=== PATIENT | male | born 1980 | race Caucasian/White ===

== ENCOUNTER 2021-05-31 01:51 | Outpatient (CLI) | payer MEDICAID, SELFPAY ==
[2021-05-31 11:39] LABS: Hemoglobin A1C 5.4 % (<5.7)
[2021-05-31 12:50] LABS: Calculated LDL 108 mg/dL (<100); Cholesterol 181 mg/dL (<200); HDL Cholesterol 67 mg/dL (40-60); Triglyceride 31 mg/dL (<150)
== END 2021-05-31 01:52 | disposition home or self-care (01) ==
LOC: LBO 01:51
PROVIDERS: PCP Nurse Practitioner Family; Visit Provider Nurse Practitioner Family
DX: Z13.1 Encounter for screening for diabetes mellitus (principal); Z13.220 Encounter for screening for lipoid disorders
CPT/HCPCS: 36415; 80061; 83036

== ENCOUNTER 2021-06-28 10:50 | Emergency (ER) | payer MEDICAID, SELFPAY ==
--- NOTE | 2021-06-28 10:45 | RT.EKG_ITS ---
APPROVED REPORT Exam: Resting ECG Reason for Exam: Hiccups x 3 days Patient Location: E HR:84 bpm ECG Measurements Heart Rate 84 AXIS ID 136 P 85 QRSd 119 QRS 88 QT 361 T 68 QTc 428 Conclusion Sinus rhythm...normal P axis, V-rate 60- 99 Incomplete right bundle branch block...QRSd >112, terminal axis(90,270). Sinus. Incomplete RBBB. No STEMI. I have reviewed and interpreted ECG and agree with software generated interpretation.
[2021-06-28 10:56] VITALS: BP 114/64; PULSE 79; RESP 15; TEMP 36.5; O2SAT 100
--- NOTE | 2021-06-28 11:11 | W.ED.GENAD ---
Discharge Plan Disposition Patient Disposition: HOME Condition: Improving Discharge Details Clinical Impression: Intractable hiccups Primary Care Provider: Jarrod Palafox ED Provider: Ariana Carrasquillo Home Meds and New Rx's Prescriptions: New pantoprazole [Protonix] 40 mg tablet,delayed release (DR/EC) 40 mg PO DAILY Qty: 7 0RF gabapentin 100 mg capsule 100 mg PO TID PRN (Reason: hiccups) Qty: 10 0RF No Action Creon 12,000-38,000 -60,000 unit capsule,delayed release(DR/EC) 1 cap PO TID Qty: 270 3RF Rx Instructions: administer with meals Discharge Instructions Instructions: Hiccups (ED) Additional Instructions: Please take the Protonix daily and the gabapentin as needed up to 3 times a day for hiccups. Please return to the ER for any worsening symptoms, chest pain, abdominal pain, vomiting, headache or any concerns. Follow up with primary care provider in 3-5 days. Return to ED sooner if any worsening or concerns. Increase oral fluids. Referrals: Jarrod Palafox, [employer] [Primary Care Provider] - 3 days Discharge Data Discharge Date/Time-TO BE ENTERED AT DEPARTURE: 06/28/21 13:39 Medical Decision Making 40-year-old male presents to the ER with chief complaint of hiccups for the last 3 days. He reports they are intermittent however he was unable to sleep last night. He presented to the urgent care this morning and was instructed to present here for further evaluation. He denies any chest pain, abdominal pain, nausea vomiting or diarrhea. He denies any headache or neck pain. She does have a past medical history of pancreatic insufficiency which he takes Creon for. Reports trying to drink water, water upside down taking Tums and his roommate anxiety medication which she does not know the name of with little to no relief. Cardiac work-up including EKG ordered, including troponins and lipase, chest x-ray. Give patient a GI cocktail. Will consider Reglan and Thorazine. Patient denies any chest pain, abdominal pain or headache which excludes any more serious causes for hiccups. Differential diagnosis includes but not limited to GERD, gastric distention, diaphragmatic hernia, alcohol use, pancreatitis, anxiety. 1240: Patient reevaluation, appears to be drowsy in the room and awakens begin to kick up again. Patient has received a GI cocktail and Reglan little to no relief. Protonix and gabapentin 100 mg added onto medication regimen. Labs show no leukocytosis, CMP largely within normal limits, bilirubin is slightly elevated at 1.1, lipase within normal limits at 58. Initial troponin negative. EKG shows a right bundle branch block please see Dr. Malik initial report. EXAM:? XR CHEST 2V PA ? LATERAL CLINICAL HISTORY:? Hiccups x 3 days TECHNIQUE:? 2D digital imaging was performed. COMPARISON:? No exams were available for comparison FINDINGS: MEDIASTINUM: Normal.? HEART: Normal. PULMONARY VASCULATURE: Normal. LUNGS: Clear. ? PLEURAL SPACE: No pleural effusion or pneumothorax. BONE: Pectus excavatum deformity..? IMPRESSION: No acute abnormality.? 1242: Chest x-ray shows pectus excavated deformity and not sure if this has something to do with the hiccups or not. If additional Protonix and gabapentin do not relieve hiccups will consider a CT abdomen pelvis 1323: Improvement patient reports improvement in hiccups after the Protonix and gabapentin. I will send patient home with the Protonix and gabapentin I did encourage follow-up with PCP and discuss strict return instructions with patient. HPI General Mode of arrival: ambulatory. Date/Time Provider Initiated Documentation: 06/28/21 10:53. Limitations to Documentation: no limitations. Information obtained by: patient, RN notes reviewed and old records reviewed. HPI Narrative: 40-year-old male presents to the ER with chief complaint of hiccups for the last 3 days. He reports they are intermittent however he was unable to sleep last night. He presented to the urgent care this morning and was instructed to present here for further evaluation. He denies any chest pain, abdominal pain, nausea vomiting or diarrhea. He denies any headache or neck pain. She does have a past medical history of pancreatic insufficiency which he takes Creon for. Reports trying to drink water, water upside down taking Tums and his roommate anxiety medication which she does not know the name of with little to no relief. Related Data Home Medications Medication Instructions Recorded Confirmed zctovy-oskerxer-qeuofop 1 cap PO TID #270 cap 08/13/20 06/28/21 12,000-38,000-60,000 unit capsule,delayed rel (Creon) gabapentin 100 mg capsule 100 mg PO TID PRN #10 cap 06/28/21 06/28/21 pantoprazole 40 mg tablet,delayed 40 mg PO DAILY #7 tab 06/28/21 06/28/21 release (Protonix) Previous Rx's Medication Instructions Recorded ddfiul-kyctddpm-hkfztpt 1 cap PO TID #270 cap 08/13/20 12,000-38,000-60,000 unit capsule,delayed rel (Creon) gabapentin 100 mg capsule 100 mg PO TID PRN #10 cap 06/28/21 pantoprazole 40 mg tablet,delayed 40 mg PO DAILY #7 tab 06/28/21 release (Protonix) Allergies Allergy/AdvReac Type Severity Reaction Status Date / Time No Known Allergies Allergy Verified 06/28/21 11:02 General Stated Complaint: GenMedical LELAND: 3 Review of Systems All systems reviewed & are unremarkable except as noted in HPI and below Constitutional Constitutional: Reports as per HPI, Denies fever(s), Denies headache(s) and Reports poor appetite ENT Ears, Nose, Mouth, and Throat: Denies headache(s) Cardiovascular Cardiovascular: Denies chest pain, Denies dyspnea and Reports other (hiccups) Respiratory Respiratory: Denies cough and Denies dyspnea Gastrointestinal Gastrointestinal: Denies abdominal pain, Denies diarrhea, Denies nausea, Denies vomiting and Reports other (Hiccups, Poor appetitie) Neurologic Neurologic: Denies headache(s) PFSH All Active Problems Intractable hiccups (Acute) Keloid scar (Acute) Center of chest Exocrine pancreatic insufficiency (Chronic) Medical History COVID-19 05/04/21 Surgical History Status post appendectomy (~05/11/18) Status post wisdom tooth extraction Family History Mother No problems noted. Father No problems noted. Brother No problems noted. Brother No problems noted. Brother No problems noted. Social History Smoking/Tobacco Use Status: Never Second Hand Exposure: Yes Smoking risk assessment performed?: Yes Alcohol Intake: current Alcohol Intake frequency: a few times a month Alcohol type: hard liquor Drug use: Never Substance use type: does not use Adopted: No Caregiver/Support person: No Foster care: No Household members: significant other Housing: house Do you need help understanding health information?: Never Pets and animals: Yes Pets and animals: dog(s) Sexually active: Yes Do you think of yourself as: lesbian/irby/homosexual Current gender identity: male What is your relationship status?: living with partner How often do you talk on the phone with friends or family?: twice per week How often do you get together with friends or relatives?: once per week How often do you attend latter day or hinduism services?: 4 or more times per year Do you belong to any clubs or organized social groups?: no Panel score (0-1 are the most socially isolated patients): 3 What type of physical activity do you participate in: walking Duration: > 90 minutes/day Frequency: daily Ninoska/Yazidism: Gnosticism Seatbelt use: always Helmet use: No Drive intox or ride w/intox 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 Appears stated age. Normal body habitus. Head: Normocephalic, no trauma. Eyes: Pupils PERRL, Red reflex noted, EOM's intact. Eyelids symmetrical without lesions, discharge, or swelling. ENT: Bilateral TM's WNL, External ear normal to inspection, no mastoid TTP, swelling, or erythema, Nasal turbinates WNL, no nasal discharge. Normal dentition, Posterior pharynx WNL, no exudate. Chest: RRR, Normal S1, S2, distal pulses intact. Resp: Lungs clear to auscultation bilaterally, no wheezes, rales, or rhonchi. Patient does have frequent hiccups on exam. Abdomen: Soft, non-distended, Normoactive bowel sounds all 4 quads. Musculoskeletal: Normal gait, 5/5 strength to all four extremities. Skin: No suspicious rashes or lesions. Capillary refill less than 2 sec. Neurologic: Cranial nerves II-XII intact. Alert and oriented x 3. Motor: No deficits noted. Sensory: Intact bilaterally all 4 extremities. Reflexes: DTR's intact bilaterally.. Hematologic/Lymphatic: No ecchymosis, no lymphadenopathy. Course Vital Signs Vital signs: Vital Signs Temperature 36.5 C 06/28/21 10:56 Pulse 79 06/28/21 10:56 Respiratory Rate 15 06/28/21 10:56 Blood Pressure 114/64 06/28/21 10:56 Pulse Oximetry 100 06/28/21 10:56 Temperature 36.5 C 06/28/21 10:56 Temperature Source Tympanic 06/28/21 10:56 Pulse 79 06/28/21 10:56 Respiratory Rate 15 06/28/21 10:56 Respiratory Effort Non-Labored 06/28/21 11:01 Blood Pressure 114/64 06/28/21 10:56 Blood Pressure Position Sitting 06/28/21 10:56 Pulse Oximetry 100 06/28/21 10:56 Oxygen Delivery Method Room Air 06/28/21 10:56 Oxygen Flow Rate 0 06/28/21 10:56 Pain Level 0 06/28/21 10:56 PAWSS Have you Been Recently Intoxicated or Drunk Within the Last 30 days?: No Have you Ever Experienced Previous Episodes of Alcohol Withdrawal?: No Have you ever Experienced Withdrawal Seizures?: No Have you ever Experienced Delirium Tremens(DT)s?: No Have you ever undergone Alcohol Rehabilitation Treatment (i.e, inpt ot outpatient treatment programs)?: No Have you ever Experienced Blackouts?: No Have you ever Combined Alcohol with other Downers within the last 90 days?: No Have you ever Combined Alcohol with any other Substance of Abuse during the last 90 days?: No Positive Blood Alcohol level on Presentation? [PCS.BAL]: No Evidence of Increased Autonomic Activity (i.e. HR>120, tremor, sweating, agitation, nausea)?: No Result: 0
--- NOTE | 2021-06-28 11:15 | DI.RAD_ITS ---
Exam(s) XR CHEST 2V PA LATERAL EXAM: XR CHEST 2V PA LATERAL CLINICAL HISTORY: Hiccups x 3 days TECHNIQUE: 2D digital imaging was performed. COMPARISON: No exams were available for comparison FINDINGS: MEDIASTINUM: Normal. HEART: Normal. PULMONARY VASCULATURE: Normal. LUNGS: Clear. PLEURAL SPACE: No pleural effusion or pneumothorax. BONE: Pectus excavatum deformity.. IMPRESSION: No acute abnormality. DATA REPOSITORY: RADIATION DOSE DELIVERED:
[2021-06-28 11:43] LABS: Abs Immature Grans 0.01 10^3/uL (0.0-0.06); Absolute Basophil Count 0.02 10^3/uL (0.0-0.2); Absolute Eosinophil Count 0.02 10^3/uL (0.0-0.7); Absolute Lymphocyte Count 1.29 10^3/uL (1.2-3.4); Absolute Monocyte Count 0.44 10^3/uL (0.1-0.8); Absolute Neutrophil Count 2.54 10^3/uL (1.2-6.7); Basophils % 0.5; Eosinophils % 0.5; HCT 41.9 % (40.0-50.0); HGB 14.1 g/dL (13.5-17.5); Immature Grans % 0.2; Lymphocytes % 29.9; MCH 29.3 pg (27.0-33.0); MCHC 33.7 % (32.0-36.0); MCV 87.1 fL (80-95); MPV 10.1 fL (8.0-11.0); Monocytes % 10.2; Neutrophils % 58.7; Nucleated RBC 0 %; Platelet Count 189 10^3/uL (130-400); RBC 4.81 10^6/uL (4.36-5.78); RDW 13.2 % (11.8-14.1); WBC 4.32 10^3/uL (4.4-10.8)
[2021-06-28] MEDS: Metoclopramide 10 MG/2 ML VIAL IVP (11:56)
[2021-06-28 12:05] LABS: ALT 21 U/L (16-63); AST 23 U/L (15-37); Albumin 4.6 g/dL (3.4-5.0); Alkaline Phosphatase 65 U/L (46-116); BUN 12 mg/dL (7-18); Bilirubin, Total 1.1 mg/dL (0.2-1.0); Calcium 9.6 mg/dL (8.5-10.1); Chloride 104 mmol/L (98-107); Glucose 89 mg/dL (74-106); Lipase 58 U/L (73-393); Magnesium 2.4 mg/dL (1.8-2.4); Potassium 4.1 mmol/L (3.5-5.1); Sodium 139 mmol/L (136-145); Total Protein 8.3 g/dL (6.4-8.2); Troponin I < 50 ng/L (<or=60)
[2021-06-28] MEDS: Pantoprazole 40 MG VIAL IVP (12:46)
[2021-06-28] MEDS: Gabapentin 300 MG CAP PO (13:28)
== END 2021-06-28 13:39 | disposition home or self-care (01) ==
PROVIDERS: Emergency Provider Registered Nurse Emergency; PCP Nurse Practitioner Family
DX: R06.6 Hiccough (principal)
CPT/HCPCS: 36415; 80053; 83690; 93005; 96374; 96375; 99284; 71046; 83735; 84484; 85025; 93010; 99283; J2765

== ENCOUNTER 2021-07-06 16:12 | Outpatient (CLI) | payer MEDICAID, SELFPAY ==
--- NOTE | 2021-07-06 13:07 | DI.CT_ITS ---
Exam(s) CT CHEST WO EXAM: CT CHEST WO CLINICAL HISTORY: R/O mass, intractable hiccups, R06.6. TECHNIQUE: Multi planar reconstructions were performed. CONTRAST MATERIAL: None COMPARISON: CR XR CHEST 2V PA LATERAL from 06/28/2021 FINDINGS: CHEST: LUNGS: There are no infiltrates nor ominous pulmonary nodules and there are no pleural effusions. No significant focal findings in the trachea and mainstem bronchi. There is no bronchiectasis. MEDIASTINUM: There is no obvious hilar nor mediastinal adenopathy. Visualized thyroid unremarkable.No obvious axillary adenopathy CARDIAC: Heart size is normal. There is no pericardial effusion.Caliber of the thoracic aorta is wit hin normal limits. VISUALIZED UPPER ABDOMEN: OSSEOUS: No significant osseous lesions.. IMPRESSION: 1. No significant focal pulmonary findings. No pleural effusions. 2. No intrathoracic adenopathy. RADIATION DOSE DELIVERED: 438.23mGy.cm Total DLP DATA REPOSITORY: All CT scans at this facility are submitted to the National Radiology Data Registry (NRDR) Dose Index Registry (DIR) with the [employer] (ACR). RADIATION OPTIMIZATION: All CT scans at this facility use at least one of these dose optimization te chniques: automated exposure control; mA and/or kV adjustment per patient size (includes targeted exa ms where dose is matched to clinical indication); or iterative reconstruction.
--- NOTE | 2021-07-06 14:32 | DI.RAD_ITS ---
Exam(s) RF BARIUM SWALLOW EXAM: RF BARIUM SWALLOW CLINICAL HISTORY: intractable hiccups, R06.6 TECHNIQUE: 2D and realtime digital imaging was performed. CONTRAST MATERIAL: Air-contrast barium technique use COMPARISON: No exams were available for comparison FINDINGS: This study was performed both standing and recumbent. The swallowing mechanism appears grossly intact. No aspiration evident. No evidence of hypertense u pper esophageal sphincter. No evidence of Zenker's diverticulum. No obvious fixed lesions seen in t he esophagus. No obvious external compression. No achalasia. No significant tertiary waves demonstrated. At the level of the GE junction there is no evidence of hiatal hernia nor Schatzki ring. No diverticulum evident at this level Stomach: Patient had some difficulty holding in the air. However, there are no obvious fixed lesions nor ulcer craters evident the stomach. Duodenum: No stricture. No ulcer crater seen. IMPRESSION: 1. No significant focal findings in the esophagus. 2. No obvious abnormalities evident in the stomach and duodenal C-loop RADIATION DOSE DELIVERED: juliette Sun=27.1 mGy
[2021-07-06] MEDS: Simethicone/Sod Bicarb/Cit Ac, 4 gram PACKET 1 PACKET PO (14:34)
[2021-07-06] MEDS: Barium Sulfate 60% W/V 355 ML BTL PO (14:35)
== END 2021-07-06 16:32 ==
PROVIDERS: PCP Nurse Practitioner Family; Visit Provider Family Medicine
DX: R06.6 Hiccough (principal)
CPT/HCPCS: 71250; 74221; J3490

== ENCOUNTER 2021-07-19 02:45 | Outpatient (CLI) | payer MEDICAID, SELFPAY ==
[2021-07-19 11:25] LABS: Source Nasal/Nares
[2021-07-20 00:05] LABS: COVID-19 PCR Negative (Negative)
== END 2021-07-19 02:46 | disposition home or self-care (01) ==
LOC: LBO 02:45
PROVIDERS: PCP Nurse Practitioner Family; Visit Provider Surgery
DX: Z20.822 Contact with and (suspected) exposure to COVID-19 (principal); Z01.818 Encounter for other preprocedural examination
CPT/HCPCS: 87635

== ENCOUNTER 2021-07-20 08:37 | Day surgery (SDC) | payer MEDICAID, SELFPAY ==
--- NOTE | 2021-07-19 12:08 | W.PM.DSUDISC ---
Discharge Plan Disposition Patient Disposition: HOME Condition: Good Discharge Details Reason For Visit: stomach scope Attending Provider: Zahra Cannon Primary Care Provider: Jarrod Palafox Home Meds and New Rx's Prescriptions: No Action Creon 3,000-9,500- 15,000 unit capsule,delayed release(DR/EC) 1 cap PO TID 0RF baclofen 10 mg tablet 10 mg PO TID Qty: 90 0RF Discharge Instructions Additional Instructions: Post EGD Instruction ? ?You had anesthesia for your EGD/stomach scope today.? For your safety, please do the following for the next twenty-four (24) hours: Do Not operate a motor vehicle (car, truck, motorcycle, etc.) Do Not drink alcoholic beverages or use any recreational drugs for the first 24 hours or while taking pain medications. The medications in your body may have a reaction that can be dangerous. Do Not make any important decisions or sign any important papers ? You have just had a gastroscopy (EGD) or upper GI tract examination. It is important for your smooth recovery that you carefully follow the recommendations below. Do not hesitate to call if any questions should arise about your anesthesia, condition, or care. -Symptoms you may experience during the next 24 hours: ?1. Mild abdominal pain or excessive gas or a bloated feeling which improves with rest, liquids, eating? slightly, and walking as tolerated. 2. Drowsiness and/or forgetfulness because of the medications you were given. ?3. Throat numbness for about 1 hour. 4. A sore throat which you can treat with throat lozenges or by gargling with salt water 4-5 times a day. 5. Redness at the site of your IV which you can treat with warm compresses. ? SPECIAL INSTRUCTIONS: 1. You may resume your previous diet in one hour. We recommend a light meal to start, then progress as tolerated. 2. Restart regular medications in one hour. 3. No aspirin or non-steroidal containing medication for three days. 4. No lifting over 20 pounds or strenuous activity for the first 24 hours after your procedure. After 24 hours there are no restrictions on your activity, but you may feel fatigued for a few days. ?Findings:grossly normal - Biopsies were taken today. It takes about 2 weeks to get the results of the biopsies back. My office will send a letter in 2 to 3 weeks time with the results of the biopsies. He -Medications: continue baclofen other medications that can be tried include reglan/gabapentin/thorazine -Most likely this is a result of nerve injury from coughing. It will probably resolve on its own. It may take 6 to 12 months. Continue medication as needed Follow up:Odalis Palafox in 3-4 wks -My office will send a letter with the results of your biopsy?s in 2-3wks time. ? Call the office at [phone] (Office) or [phone] (Hospital), or go to the ER right away if you notice any of the followin. Vomiting blood and /or ?coffee ground? material. ?2. Worsening of abdominal pain or cramping. ?3. Trouble with breathing, cough, and/or fever (temperature above 101.5 F). 4. Increasing pain with swallowing. ?5. Chest pain. 6. Any new symptoms. 7. Worsening of the redness at the IV site ? Activity:: see above Diet:: see above Discharge Orders Discharge Orders: Discharge Order (Routine); Ordered 07/19/21 Ordered By: Zahra Cannon
--- NOTE | 2021-07-19 12:11 | ENDO_ITS ---
Date of service: 07/20/21 Time of Service: 09:45 Endoscopy Report DATE OF PROCEDURE: 07/20/21 PRE-OP DIAGNOSIS: chronic eructations POST-OP DIAGNOSIS: same SURGEON: Zahra Canonn ANESTHESIA TYPE: General:No Airway PATHOLOGY: other COMPLICATIONS: None DISPOSITION: same day PROCEDURE DESCRIPTION: After informed consent was obtained the patient was take to the procedure room and placed in a supine position. Monitors were applied and a time out was done. The patients name, date of , procedure type, allergies to medications and metal in their body was reviewed. A bite block was placed and the patient was sedated. Once sedated and comfortable the gastroscope was advanced through the oropharynx which was grossly normal into the esophagus. The proximal and mid- esophagus were nl. In the distal esophagus there was no: Erosions/varices/diverticula/stricturenoted. The scope was advanced into the stomach and through the pylorus into the 3rd portion of the duodenum. The duodenum was noted to be normal. Biopsies were done , all specimens are retrieved and no bleeding is noted. The scope was retracted back into the stomach and biopsies were done to rule out H. pylori. There were no ulcers or gastritis. No scope was retroflexed. The cardia and fundus were noted to be normal. There a hiatal hernia noted. The scope was retracted back into the esophagus and biopsies were done of the GE junction to rule out Lara's. The Z line was regular. The GE junction was at 40 the distal esophagus is at 38. The scope was removed and the patient was woken up and taken back to [facility] in stable condition. Follow up: normal exam
--- NOTE | 2021-07-20 | DI.CT_ITS ---
Exam(s) CT NECK CHEST W EXAM: CT NECK CHEST W CLINICAL HISTORY: intractible hiccups since covid TECHNIQUE: Imaging Protocol: Axial computed tomography images with coronal and sagittal reformatted images were created and reviewed CONTRAST MATERIAL: Intravenous: Omnipaque 350 Contrast volume:150ml contrast route:IV - COMPARISON: CR XR CHEST 2V PA LATERAL from 06/28/2021 FINDINGS: Neck: Parotids/submandibular/thyroid gland: Normal. Lymphadenopathy: There is scattered lymph nodes seen along the level one to level three all measurin g less than 8 mm in short axis diameter which are physiologic in nature. Carotids/Jugular: Within normal limits. Soft tissues: The floor the mouth is unremarkable. The epiglottis and vocal cords are within normal limits. Images through both lung apices are unremarkable. Bones: Levo scoliosis versus patient positioning. Sinuses and mastoid air cells: Clear where visualized. Chest: Tracheobronchial tree: Patent where visualized. No bronchiectasis or mucus plugging. Mediastinum and Zee: No dominant adenopathy or fluid collection. Esophagus not dilated. Pulmonary parenchyma: No ground-glass infiltrates. No consolidation or dominant measurable mass. No architectural distortion. Pleura: No effusion or pneumothorax. Heart/Aorta: Thoracic aorta non-dilated. The heart is not dilated. No coronary artery calcifications are seen. Upper abdomen: Unremarkable. IMPRESSION: Normal CT of the Neck and chest. RADIATION DOSE DELIVERED: 1,265.04mGy.cm Total DLP DATA REPOSITORY: All CT scans at this facility are submitted to the National Radiology Data Registry (NRDR) Dose Index Registry (DIR) with the [employer] (ACR). RADIATION OPTIMIZATION: All CT scans at this facility use at least one of these dose optimization te chniques: automated exposure control; mA and/or kV adjustment per patient size (includes targeted exa ms where dose is matched to clinical indication); or iterative reconstruction.
[2021-07-20 08:55] VITALS: BP 104/81; PULSE 92; RESP 16; TEMP 36.5; O2SAT 100
--- NOTE | 2021-07-20 09:04 | ANES.PREOP_ITS ---
General Info Date of Service Date Performed: 07/20/21 Height: 5 ft 10 in Weight: 69.7 kg Body Mass Index (BMI): 22.0 Surgical Procedure: Operation Date: 07/20/21 09:50 Proposed Procedure Side Surgeon p Gastroscopy Zahra Cannon, DO Meds Allergies and Home Medications Allergies Allergy/AdvReac Type Severity Reaction Status Date / Time No Known Allergies Allergy Verified 07/19/21 10:17 Home Medication Medication Instructions Recorded baclofen 10 mg tablet 10 mg PO TID #90 tab 07/07/21 lipase 3,000-protease 1 cap PO TID 07/15/21 9,500-amylase 15,000 unit capsule, delayed rel (Creon) Current Visit Medications: Current Medications Generic Name Dose Route Start Last Admin Trade Name Freq PRN Reason Stop Dose Admin Hyoscyamine Sulfate 0.125 mg 07/19/21 12:06 Hyoscyamine 0.125 Mg Sl/Oral/Chew SL DIRECTED PRN Ringer's Solution 1,000 mls @ 80 mls/hr 07/20/21 06:00 IV 07/29/21 23:59 INFUSION ROGELIO IV Miscellaneous Supplies 1 each 07/20/21 06:00 Iv Access IV 07/29/21 23:59 DIRECTED ROGELIO Ondansetron HCl 4 mg 07/19/21 12:06 Ondansetron 4 Mg/2 Ml Vial IVP Q4H PRN PRN Nausea / Vomiting Sodium Chloride 0 ml 07/20/21 06:00 Normal Saline Flush 10 Ml Syr IV 07/29/21 23:59 PRN PRN Sodium Chloride 0 ml 07/20/21 06:00 Normal Saline 10 Ml Vial IJ 07/29/21 23:59 DIRECTED PRN Sterile Water 0 ml 07/20/21 06:00 Water,Injection,Sterile 10 Ml Vial IJ 07/29/21 23:59 DIRECTED PRN PFSH Active Problems Active Problems: Problem Status Onset Code Exocrine pancreatic insufficiency K86.81 Intractable hiccups R06.6 Medical History Medical History COVID-19 05/04/21-symptoms Keloid scar Center of chest Surgical History Surgical History (Updated 07/20/21 @ 08:50 by Greta Reza RN) History of esophagogastroduodenoscopy (EGD) Hx of colonoscopy Status post appendectomy (~05/11/18) Status post wisdom tooth extraction Tobacco Smoking/Tobacco Use Status: Never Passive smoking exposure: Yes Second hand exposure: Yes Alcohol Alcohol Intake: current Alcohol intake frequency: a few times a month Alcohol type: hard liquor Substance Use Substance use: Never Substance use type: does not use Vital Signs and Lab Results Vital Signs Most Recent Vital Signs in EMR: Most Recent Vital Signs Temp Pulse Resp BP Pulse Ox 36.5 C 92 H 16 104/81 100 07/20/21 08:55 07/20/21 08:55 07/20/21 08:55 07/20/21 08:55 07/20/21 08:55 Lab Results Blood Type / Crossmatch: No Data to Display Complete Blood Count: White Blood Count 4.32 10^3/uL (4.4-10.8) L 06/28/21 11:23 06/28/21 Red Blood Count 4.81 10^6/uL (4.36-5.78) 06/28/21 11:23 06/28/21 Hemoglobin 14.1 g/dL (13.5-17.5) 06/28/21 11:23 06/28/21 Hematocrit 41.9 % (40.0-50.0) 06/28/21 11:23 06/28/21 Platelet Count 189 10^3/uL (130-400) 06/28/21 11:23 06/28/21 Complete Metabolic Panel: Sodium Level 139 mmol/L (136-145) 06/28/21 11:23 06/28/21 Potassium Level 4.1 mmol/L (3.5-5.1) 06/28/21 11:23 06/28/21 Chloride Level 104 mmol/L (98-107) 06/28/21 11:23 06/28/21 Carbon Dioxide Level 25.0 mmol/L (21.0-32.0) 06/28/21 11:23 06/28/21 Blood Urea Nitrogen 12 mg/dL (7-18) 06/28/21 11:23 06/28/21 Creatinine 1.0 mg/dL (0.70-1.30) 06/28/21 11:23 06/28/21 Estimated GFR/1.73 m2 >= 60.00 (mL/min/1.73m2) 06/28/21 11:23 06/28/21 Magnesium Level 2.4 mg/dL (1.8-2.4) 06/28/21 11:23 06/28/21 Calcium Level 9.6 mg/dL (8.5-10.1) 06/28/21 11:23 06/28/21 Albumin 4.6 g/dL (3.4-5.0) 06/28/21 11:23 06/28/21 Glucose Level 89 mg/dL (74-106) 06/28/21 11:23 06/28/21 Liver Function Panel: 2 Alanine Aminotransferase (ALT/SGPT) 21 U/L (16-63) 06/28/21 11:23 06/28/21 Aspartate Amino Transf (AST/SGOT) 23 U/L (15-37) 06/28/21 11:23 06/28/21 Coagulation Panel: No Data to Display Cardiac Panel: Troponin I < 50 ng/L (<or=60) 06/28/21 Arterial Blood Gas: No Data to Display Venous Blood Gas: No Data to Display Pancreas Panel: Lipase 58 U/L (73-393) 06/28/21 11:23 06/28/21 Thyroid Panel: No Data to Display Infectious Disease: Coronavirus (COVID-19)(PCR) Negative (Negative) 07/19/21 08:53 07/19/21 Coronavirus 2019 Source Nasal/Nares 07/19/21 08:53 07/19/21 Blood Cultures: No Data to Display Toxicology Panel: No Data to Display Anesthesia Assessment and Plan Anesthesia History Personal History: No History of Anesthesia Complications Family History: No Family History of Anesthesia Complications Exercise Tolerance Exercise Tolerance: Metabolic Equivalents>4 Pertinent Negatives Pertinent Negatives: No Symptoms of GERD, No Major Cardiovascular Symptoms or Complaints, No Major Pulmonary Symptoms or Complaints and No History of CVA/TIA Cardiac & Pulmonary Exam Cardiac Exam: Normal S1/S2 Heart Sounds Pulmonary Exam: Clear Bilateral Breath Sounds Implantable Cardiac Device Does patient have a Pacemaker or an ICD?: No Airway Exam Known Difficult Airway: No Mallampati Class: 1 Mouth Opening: Normal (> 3cm) Thyromental Distance: Greater than 3 cm Neck Range of Motion: Full ROM Neck Circumference: Normal Teeth Condition: Normal Dentition Airway Comments: #11 chipped ASA Classification ASA Score: ASA 2 Emergency Case?: No NPO Status NPO Status: NPO Clears >2 hours, Solids >8 hours Anesthesia Plan Resuscitation Status: Full Code Anesthesia Technique: General Anesthesia Airway Planned: Natural Airway Monitors Used: Standard Monitors
[2021-07-20 09:05] VITALS: BMI 22.0
[2021-07-20] MEDS: Lactated Ringers 1,000 ML 80 ML IV (09:06)
--- NOTE | 2021-07-20 09:27 | STOM_PTH ---
PATIENT: Jax Andrade LOC: [facility] U#:[id number] AGE/SX: 40/M ROOM: RE07/20/[address]: Zahra Cannon : 1980 BED: DIS: 07/20/2021 SPEC #: [id number] RECD: 07/20/21 12:42 STATUS: BIBI RE #: [id number] JASMIN: 07/20/21 09:[address]: Zahra Cannon DEPT: Surgical Specimen RECD BY: Digna Sebastian ENTERED: 07/20/21 12:45 SP TYPE: STOMACH OTHR DR: Jarrod Palafox, STRAW BOSS Tissues: 1 - BIOPSY BOWEL 2 - BIOPSY BOWEL 3 - STOMACH BIOPSY 4 - STOMACH BIOPSY 5 - ESOPHAGUS BIOPSY 6 - ESOPHAGUS BIOPSY Procedures: GROSS AND MICRO LEVEL 4 Comments: [id number]
[2021-07-20 09:39] VITALS: BP 110/81; PULSE 79; RESP 16; TEMP 36.6; O2SAT 98
--- NOTE | 2021-07-20 09:41 | W.ANESPOSTOP ---
Postoperative Evaluation Date, Time and Location Date Performed: 07/20/21 Time Performed: 09:41 Patient Location: Day [facility] Unit Vital Signs Most Recent Imported Vital Signs: Most Recent Vital Signs Temp Pulse Resp BP Pulse Ox 36.5 C 92 H 16 104/81 100 07/20/21 08:55 07/20/21 08:55 07/20/21 08:55 07/20/21 08:55 07/20/21 08:55 Pain Score Most Recent Pain Score: Most Recent Pain Score Pain Level 0 07/20/21 08:55 Assessment Mental Status: Awake (Alert & Oriented to Patient Baseline) Airway and Respiratory Function: Patent airway with normal (patient baseline) respiratory exam Cardiovascular Function: Hemodynamically Stable Hydration Status: Adequately Hydrated Nausea & Vomiting: No Nausea or Vomiting Pain: Pt. Denies Any Pain Peripheral Nerve Block: Patient did not receive a nerve block
[2021-07-20 10:28] VITALS: BP 118/77; PULSE 77; RESP 16; TEMP 36; O2SAT 100
[2021-07-20] MEDS: Normal Saline Flush 10 ML SYR IV (10:37)
[2021-07-20] MEDS: Omnipaque 350 MG/ML 50 ML BTL 150 ML IJ (10:38)
== END 2021-07-20 11:40 | disposition home or self-care (01) ==
PROVIDERS: PCP Nurse Practitioner Family; Visit Provider Surgery
PROC: 0DJ68ZZ Inspection of Stomach, Via Natural or Artificial Opening Endoscopic (ICD-10-PCS; CPT 43235; principal; 2021-07-20 09:45)
DX: R06.6 Hiccough (principal); K86.81 Exocrine pancreatic insufficiency; R05.8 Other specified cough; K44.9 Diaphragmatic hernia without obstruction or gangrene; Z86.16 Personal history of COVID-19; K22.89 Other specified disease of esophagus
CPT/HCPCS: 43239; 70491; 88305; 71260; J2001; Q9967

== ENCOUNTER 2023-06-22 01:18 | Outpatient (CLI) | payer MEDICAID, SELFPAY ==
[2023-06-22 12:21] LABS: Absolute Basophil Count 0.02 10^3/uL (0.0-0.2); Absolute Eosinophil Count 0.02 10^3/uL (0.0-0.7); Absolute Lymphocyte Count 1.52 10^3/uL (1.2-3.4); Absolute Monocyte Count 0.37 10^3/uL (0.1-0.8); Absolute Neutrophil Count 2.22 10^3/uL (1.2-6.7); Basophils % 0.5; Eosinophils % 0.5; HCT 42.6 % (40.0-50.0); HGB 14.2 g/dL (13.5-17.5); Lymphocytes % 36.6; MCHC 33.3 % (32.0-36.0); MCV 87 fL (80-95); MPV 9.6 fL (8.0-11.0); Monocytes % 8.9; Neutrophils % 53.5; Platelet Count 184 10^3/uL (130-400); RBC 4.89 10^6/uL (4.36-5.78); RDW 12.6 % (11.8-14.1); RDW-SD 39.8 fL; WBC 4.15 10^3/uL (4.4-10.8)
[2023-06-22 13:02] LABS: Ferritin 110 ng/mL (26-388); Vitamin B12 299 pg/mL (193-986)
[2023-06-22 13:10] LABS: Iron 78 ug/dL (65-175); Total Iron Binding Capacity 273 ug/dL (250-450)
[2023-06-23 09:32] LABS: Transferrin 224 mg/dL (201-352)
== END 2023-06-22 01:19 | disposition home or self-care (01) ==
LOC: LOS 01:19
PROVIDERS: PCP Nurse Practitioner Family; Visit Provider Nurse Practitioner Family
DX: R53.83 Other fatigue (principal)
CPT/HCPCS: 36415; 82607; 82728; 83540; 83550; 84466; 85025

== ENCOUNTER 2024-03-06 14:04 | Outpatient (REF) | payer MEDICAID, SELFPAY ==
[2024-03-08 10:57] LABS: HSV Type 1 Ab, IgG Negative (Negative); HSV Type 2 Ab, IgG Positive (Negative)
== END 2024-03-06 14:05 | disposition home or self-care (01) ==
LOC: LBN 14:04
PROVIDERS: PCP Nurse Practitioner Family; Visit Provider Physician Assistant
DX: K13.0 Diseases of lips (principal)
CPT/HCPCS: 86695; 86696

== ENCOUNTER 2024-08-07 02:04 | Outpatient (CLI) | payer MEDICAID, SELFPAY ==
[2024-08-07 12:31] LABS: Hemoglobin A1C 5.1 % (<5.7)
[2024-08-07 13:07] LABS: Calculated LDL 91 mg/dL (<100); Cholesterol 171 mg/dL (<200); HDL Cholesterol 75 mg/dL (>or=40); Triglyceride 29 mg/dL (<150)
== END 2024-08-07 02:05 | disposition home or self-care (01) ==
LOC: LOS 02:04
PROVIDERS: PCP Nurse Practitioner Family; Visit Provider Nurse Practitioner Family
DX: Z13.220 Encounter for screening for lipoid disorders (principal); Z13.1 Encounter for screening for diabetes mellitus
CPT/HCPCS: 36415; 80061; 83036